=== PATIENT | male | born 1935 | race Caucasian/White ===

== ENCOUNTER 2022-03-08 09:59 | Inpatient (IN) | payer MEDICARE ==
[2022-03-08] MEDS ORDERED: Ondansetron ODT 4 MG TAB SL PRN (15:38)
[2022-03-08] MEDS ORDERED: Cepastat Lozenges 1 LOZ PO PRN (15:38)
[2022-03-08] MEDS ORDERED: Dextrose 50% Abboject 50 ML SYRINGE SLOW IVP PRN (15:38)
[2022-03-08] MEDS ORDERED: Bisacodyl 10 MG SUPP PR PRN (15:38)
[2022-03-08] MEDS ORDERED: Artificial Tear Sol 15 ML BOT EA EYE PRN (15:38)
[2022-03-08] MEDS ORDERED: Sodium Chloride 0.65% Nasal 44 ML BOT EA NARE PRN (15:38)
[2022-03-08] MEDS ORDERED: Acetaminophen 650 MG Suppository PR PRN (15:38)
[2022-03-08] MEDS ORDERED: Acetaminophen 325 MG TAB PO PRN (15:38)
[2022-03-08] MEDS ORDERED: Calcium Carbonate 500 MG ChewTAB PO PRN (15:38)
[2022-03-08] MEDS ORDERED: Guaifenesin DM 100-10/5 ML UDCUP PO PRN (15:38)
[2022-03-08] MEDS ORDERED: Benzonatate 100 MG CAP PO PRN (15:38)
[2022-03-08] MEDS: HumaLOG 300 UNITS/3 ML VIAL SC PRN ×2 (16:42→22:20)
[2022-03-08] MEDS: Phenazopyridine HCl 95 MG TAB PO SCH (20:55)
[2022-03-08] MEDS: Tamsulosin HCl 0.4 MG CAP PO SCH (20:55)
[2022-03-08] MEDS: Metoprolol Tartrate 25 MG TAB PO SCH (20:55)
[2022-03-08] MEDS: Famotidine 20 MG TAB PO SCH (20:55)
[2022-03-08] MEDS: Trospium 20 MG TAB PO SCH (20:55)
[2022-03-08] MEDS: Simvastatin 40 MG TAB PO SCH (20:55)
[2022-03-09 05:47] LABS: #Basophils 0.1 thou/uL (0.0-0.2); #Eosinphils 0.3 thou/uL (0.0-0.7); #Lymphocytes 2.1 thou/uL (1.20-3.40); #Monocytes 0.9 thou/uL (0.11-0.59); #Neutrophils 5.7 thou/uL (1.40-6.50); %Basophils 1.3 % (0.0-1.0); %Eosinophils 3.5 % (0.0-10.0); %Monocytes 9.8 % (0.0-10.0); %Neutrophils 62.4 % (42.0-75.0); Hemoglobin 15.4 g/dL (14.0-18.0); Mean Corpuscular HGB CONC 33.3 g/dL (32.0-36.0); Mean Corpuscular Hemoglobin 32.5 pg (27.0-31.0); Mean Corpuscular Volume 97.7 fl (78.0-98.0); Mean Platelet Volume 7.9 fL (7.4-10.4); Platelet Count 252 10x3/uL (130-400); RBC Distribution Width 11.8 % (11.5-14.5); Red Blood Cell (RBC) Count 4.72 mill/uL (4.70-6.10); White Blood Cell (WBC) Count 9.2 10x3/uL (4.8-10.8)
[2022-03-09 05:58] LABS: ALT (SGPT) 20 U/L (8-55); AST (SGOT) 18 U/L (5-34); Albumin 3.5 g/dL (3.4-4.8); Alkaline Phosphatase 72 U/L (40-110); Anion Gap 12 mmol/L (10-20); BUN (Urea Nitrogen) 15 mg/dL (8.4-25.7); Bilirubin, Total 0.6 mg/dL (0.2-1.2); Calc. Creatinine Clearance 53 mL/min (70-130); Calcium 9.7 mg/dL (7.8-10.44); Carbon Dioxide 27 mmol/L (23-31); Chloride 100 mmol/L (98-107); Estimated GFR 85; Globulin 3.3 g/dL (2.4-3.5); Glucose 100 mg/dL (83-110); Potassium 5.2 mmol/L (3.5-5.1); Protein, Total 6.8 g/dL (5.8-8.1); Sodium 134 mmol/L (136-145)
[2022-03-09] MEDS ORDERED: Metoprolol Tartrate 25 MG TAB PO SCH (06:30)
[2022-03-09] MEDS ORDERED: Dutasteride 0.5 MG CAP PO SCH (06:30)
[2022-03-09] MEDS ORDERED: Tamsulosin HCl 0.4 MG CAP PO SCH (06:30)
[2022-03-09] MEDS ORDERED: Lisinopril 5 MG TAB PO SCH (06:30)
[2022-03-09] MEDS ORDERED: FLUoxetine HCl 10 MG CAP PO SCH (06:30)
[2022-03-09] MEDS ORDERED: Famotidine 20 MG TAB PO SCH (06:30)
[2022-03-09] MEDS ORDERED: Phenazopyridine HCl 95 MG TAB PO SCH (06:30)
[2022-03-09] MEDS ORDERED: Trospium 20 MG TAB PO SCH (06:30)
[2022-03-09] MEDS ORDERED: Aspirin Chewable 81 MG TAB PO SCH (06:30)
[2022-03-09] MEDS: Dutasteride 0.5 MG CAP PO SCH (09:32)
[2022-03-09] MEDS: Aspirin Chewable 81 MG TAB PO SCH (09:32)
[2022-03-09] MEDS: Famotidine 20 MG TAB PO SCH ×2 (09:32→20:44)
[2022-03-09] MEDS: FLUoxetine HCl 10 MG CAP PO SCH (09:32)
[2022-03-09] MEDS: Lantus 1000 UNITS/10 ML VIAL SC SCH ×2 (09:32→15:58)
[2022-03-09] MEDS: Phenazopyridine HCl 95 MG TAB PO SCH ×2 (09:33→20:44)
[2022-03-09] MEDS: Metoprolol Tartrate 25 MG TAB PO SCH ×2 (09:33→20:44)
[2022-03-09] MEDS: Lisinopril 5 MG TAB PO SCH (09:33)
[2022-03-09] MEDS: Tamsulosin HCl 0.4 MG CAP PO SCH ×2 (09:33→20:43)
[2022-03-09] MEDS: Trospium 20 MG TAB PO SCH ×2 (09:33→20:43)
[2022-03-09] MEDS: HumaLOG 300 UNITS/3 ML VIAL SC PRN ×2 (15:58→20:44)
[2022-03-09 16:55] LABS: #Basophils 0.1 thou/uL (0.0-0.2); #Eosinphils 0.1 thou/uL (0.0-0.7); #Lymphocytes 0.9 thou/uL (1.20-3.40); #Monocytes 0.7 thou/uL (0.11-0.59); %Basophils 1.2 % (0.0-1.0); %Eosinophils 0.7 % (0.0-10.0); %Monocytes 8.6 % (0.0-10.0); %Neutrophils 77.5 % (42.0-75.0); Hemoglobin 13.6 g/dL (14.0-18.0); Mean Corpuscular HGB CONC 31.3 g/dL (32.0-36.0); Mean Corpuscular Hemoglobin 32.1 pg (27.0-31.0); Mean Platelet Volume 7.5 fL (7.4-10.4); Platelet Count 261 10x3/uL (130-400); RBC Distribution Width 12.2 % (11.5-14.5); Red Blood Cell (RBC) Count 4.23 mill/uL (4.70-6.10); White Blood Cell (WBC) Count 7.8 10x3/uL (4.8-10.8)
[2022-03-09 17:00] LABS: Lactic Acid 2.3 mmol/L (0.5-2.2)
[2022-03-09 17:04] LABS: Anion Gap 14 mmol/L (10-20); Globulin 2.7 g/dL (2.4-3.5)
[2022-03-09 17:13] LABS: ALT (SGPT) 16 U/L (8-55); AST (SGOT) 10 U/L (5-34); Albumin 3.4 g/dL (3.4-4.8); Alkaline Phosphatase 69 U/L (40-110); BUN (Urea Nitrogen) 33 mg/dL (8.4-25.7); Bilirubin, Total 0.4 mg/dL (0.2-1.2); Calc. Creatinine Clearance 21 mL/min (70-130); Calcium 9.2 mg/dL (7.8-10.44); Carbon Dioxide 24 mmol/L (23-31); Chloride 94 mmol/L (98-107); Estimated GFR 30; Glucose 672 mg/dL (83-110); Potassium 5.3 mmol/L (3.5-5.1); Protein, Total 6.1 g/dL (5.8-8.1); Sodium 127 mmol/L (136-145)
[2022-03-09 18:16] LABS: Glucose 390 mg/dL (83-110)
[2022-03-09 20:30] LABS: Lactic Acid 1.6 mmol/L (0.5-2.2)
[2022-03-09] MEDS: Senokot S 8.6-50 MG TAB PO PRN (20:43)
[2022-03-09] MEDS: Simvastatin 40 MG TAB PO SCH (20:44)
[2022-03-10 05:59] LABS: #Basophils 0.1 thou/uL (0.0-0.2); #Eosinphils 0.4 thou/uL (0.0-0.7); #Lymphocytes 1.9 thou/uL (1.20-3.40); #Monocytes 0.9 thou/uL (0.11-0.59); #Neutrophils 5.2 thou/uL (1.40-6.50); %Basophils 1.5 % (0.0-1.0); %Eosinophils 5.1 % (0.0-10.0); %Lymphocytes 21.8 % (21.0-51.0); %Monocytes 10.2 % (0.0-10.0); %Neutrophils 61.4 % (42.0-75.0); Hemoglobin 13.4 g/dL (14.0-18.0); Mean Corpuscular Hemoglobin 32.8 pg (27.0-31.0); Mean Corpuscular Volume 96.5 fl (78.0-98.0); Mean Platelet Volume 7.9 fL (7.4-10.4); Platelet Count 242 10x3/uL (130-400); RBC Distribution Width 11.4 % (11.5-14.5); Red Blood Cell (RBC) Count 4.09 mill/uL (4.70-6.10); White Blood Cell (WBC) Count 8.5 10x3/uL (4.8-10.8)
[2022-03-10] MEDS: Lantus 1000 UNITS/10 ML VIAL SC SCH (08:17)
[2022-03-10] MEDS: Dutasteride 0.5 MG CAP PO SCH (08:24)
[2022-03-10] MEDS: FLUoxetine HCl 10 MG CAP PO SCH (08:25)
[2022-03-10] MEDS: Famotidine 20 MG TAB PO SCH ×2 (08:25→20:34)
[2022-03-10] MEDS: Tamsulosin HCl 0.4 MG CAP PO SCH ×2 (08:25→20:34)
[2022-03-10] MEDS: Aspirin Chewable 81 MG TAB PO SCH (08:25)
[2022-03-10] MEDS: Phenazopyridine HCl 95 MG TAB PO SCH ×2 (08:25→20:34)
[2022-03-10] MEDS: Trospium 20 MG TAB PO SCH ×2 (08:26→20:34)
[2022-03-10] MEDS: Metoprolol Tartrate 25 MG TAB PO SCH ×2 (08:28→20:35)
[2022-03-10] MEDS: Lisinopril 5 MG TAB PO SCH (08:29)
[2022-03-10] MEDS ORDERED: Nitrofurantoin Monohyd/M-Cryst 100 MG CAP PO SCH (09:00)
[2022-03-10] MEDS ORDERED: Sodium Chloride 0.9% 1,000 ML IV SCH (09:45)
[2022-03-10] MEDS: HumaLOG 300 UNITS/3 ML VIAL SC PRN ×2 (11:51→17:02)
[2022-03-10] MEDS: Bisacodyl 5 MG TAB PO PRN (20:34)
[2022-03-10] MEDS: Simvastatin 40 MG TAB PO SCH (20:34)
[2022-03-11 06:21] LABS: #Basophils 0.1 thou/uL (0.0-0.2); #Eosinphils 0.3 thou/uL (0.0-0.7); #Lymphocytes 1.7 thou/uL (1.20-3.40); #Monocytes 0.7 thou/uL (0.11-0.59); %Basophils 1.4 % (0.0-1.0); %Lymphocytes 19.7 % (21.0-51.0); %Monocytes 7.8 % (0.0-10.0); Hemoglobin 13.4 g/dL (14.0-18.0); Mean Corpuscular HGB CONC 32.3 g/dL (32.0-36.0); Mean Corpuscular Hemoglobin 31.8 pg (27.0-31.0); Mean Corpuscular Volume 98.5 fl (78.0-98.0); Mean Platelet Volume 7.6 fL (7.4-10.4); Platelet Count 246 10x3/uL (130-400); RBC Distribution Width 11.7 % (11.5-14.5); Red Blood Cell (RBC) Count 4.22 mill/uL (4.70-6.10); White Blood Cell (WBC) Count 8.8 10x3/uL (4.8-10.8)
[2022-03-11 06:35] LABS: Anion Gap 11 mmol/L (10-20)
[2022-03-11 06:50] LABS: BUN (Urea Nitrogen) 15 mg/dL (8.4-25.7); Calc. Creatinine Clearance 61 mL/min (70-130); Calcium 9.1 mg/dL (7.8-10.44); Carbon Dioxide 24 mmol/L (23-31); Chloride 105 mmol/L (98-107); Estimated GFR 88; Glucose 100 mg/dL (83-110); Potassium 4.6 mmol/L (3.5-5.1); Sodium 135 mmol/L (136-145)
[2022-03-11] MEDS: Trospium 20 MG TAB PO SCH ×2 (09:06→20:41)
[2022-03-11] MEDS: Famotidine 20 MG TAB PO SCH ×2 (09:06→20:42)
[2022-03-11] MEDS: Aspirin Chewable 81 MG TAB PO SCH (09:06)
[2022-03-11] MEDS: Lisinopril 5 MG TAB PO SCH (09:08)
[2022-03-11] MEDS: Metoprolol Tartrate 25 MG TAB PO SCH ×2 (09:09→20:42)
[2022-03-11] MEDS: Phenazopyridine HCl 95 MG TAB PO SCH ×2 (09:10→20:42)
[2022-03-11] MEDS: Tamsulosin HCl 0.4 MG CAP PO SCH ×2 (09:10→20:42)
[2022-03-11] MEDS: FLUoxetine HCl 10 MG CAP PO SCH (09:22)
[2022-03-11] MEDS: Dutasteride 0.5 MG CAP PO SCH (09:26)
[2022-03-11] MEDS: Lantus 1000 UNITS/10 ML VIAL SC SCH (10:11)
[2022-03-11] MEDS: HumaLOG 300 UNITS/3 ML VIAL SC PRN ×2 (11:27→17:10)
[2022-03-11] MEDS: Simvastatin 40 MG TAB PO SCH (20:41)
[2022-03-12] MEDS: FLUoxetine HCl 10 MG CAP PO SCH (08:24)
[2022-03-12] MEDS: Tamsulosin HCl 0.4 MG CAP PO SCH ×2 (08:24→21:09)
[2022-03-12] MEDS: Famotidine 20 MG TAB PO SCH ×2 (08:24→21:09)
[2022-03-12] MEDS: Dutasteride 0.5 MG CAP PO SCH (08:24)
[2022-03-12] MEDS: Aspirin Chewable 81 MG TAB PO SCH (08:24)
[2022-03-12] MEDS: Phenazopyridine HCl 95 MG TAB PO SCH ×2 (08:24→21:09)
[2022-03-12] MEDS: Trospium 20 MG TAB PO SCH ×2 (08:25→21:09)
[2022-03-12] MEDS: Lisinopril 5 MG TAB PO SCH (08:25)
[2022-03-12] MEDS: Metoprolol Tartrate 25 MG TAB PO SCH ×2 (08:26→21:10)
[2022-03-12] MEDS: Lantus 1000 UNITS/10 ML VIAL SC SCH (08:29)
[2022-03-12] MEDS: HumaLOG 300 UNITS/3 ML VIAL SC PRN ×2 (11:27→17:16)
[2022-03-12] MEDS ORDERED: Sodium Chloride 0.9% 500 ML IVPB SCH (20:30)
[2022-03-12] MEDS: Simvastatin 40 MG TAB PO SCH (21:09)
[2022-03-13 06:12] LABS: #Basophils 0.1 thou/uL (0.0-0.2); #Eosinphils 0.3 thou/uL (0.0-0.7); #Lymphocytes 2.5 thou/uL (1.20-3.40); #Monocytes 0.6 thou/uL (0.11-0.59); #Neutrophils 5.1 thou/uL (1.40-6.50); %Basophils 0.8 % (0.0-1.0); %Eosinophils 3.2 % (0.0-10.0); %Lymphocytes 29.4 % (21.0-51.0); %Monocytes 7.2 % (0.0-10.0); %Neutrophils 59.4 % (42.0-75.0); Mean Corpuscular HGB CONC 33.1 g/dL (32.0-36.0); Mean Corpuscular Hemoglobin 32.6 pg (27.0-31.0); Mean Corpuscular Volume 98.6 fl (78.0-98.0); Mean Platelet Volume 7.4 fL (7.4-10.4); Platelet Count 243 10x3/uL (130-400); RBC Distribution Width 11.5 % (11.5-14.5); Red Blood Cell (RBC) Count 3.98 mill/uL (4.70-6.10); White Blood Cell (WBC) Count 8.6 10x3/uL (4.8-10.8)
[2022-03-13 06:22] LABS: Anion Gap 11 mmol/L (10-20); BUN (Urea Nitrogen) 26 mg/dL (8.4-25.7); Calc. Creatinine Clearance 54 mL/min (70-130); Calcium 9.2 mg/dL (7.8-10.44); Carbon Dioxide 25 mmol/L (23-31); Chloride 104 mmol/L (98-107); Estimated GFR 85; Glucose 69 mg/dL (83-110); Potassium 4.2 mmol/L (3.5-5.1); Sodium 136 mmol/L (136-145)
[2022-03-13] MEDS: Aspirin Chewable 81 MG TAB PO SCH (08:30)
[2022-03-13] MEDS: Trospium 20 MG TAB PO SCH ×2 (08:31→20:22)
[2022-03-13] MEDS: Metoprolol Tartrate 25 MG TAB PO SCH ×2 (08:31→20:21)
[2022-03-13] MEDS: FLUoxetine HCl 10 MG CAP PO SCH (08:31)
[2022-03-13] MEDS: Famotidine 20 MG TAB PO SCH ×2 (08:31→20:22)
[2022-03-13] MEDS: Tamsulosin HCl 0.4 MG CAP PO SCH ×2 (08:31→20:22)
[2022-03-13] MEDS: Dutasteride 0.5 MG CAP PO SCH (08:31)
[2022-03-13] MEDS: Lantus 1000 UNITS/10 ML VIAL SC SCH (08:31)
[2022-03-13] MEDS: Phenazopyridine HCl 95 MG TAB PO SCH ×2 (08:31→20:22)
[2022-03-13] MEDS: Lisinopril 5 MG TAB PO SCH (09:00)
[2022-03-13] MEDS: HumaLOG 300 UNITS/3 ML VIAL SC PRN ×3 (11:41→20:23)
[2022-03-13] MEDS: Simvastatin 40 MG TAB PO SCH (20:22)
[2022-03-14] MEDS: HumaLOG 300 UNITS/3 ML VIAL SC PRN ×2 (06:28→11:24)
[2022-03-14] MEDS: Metoprolol Tartrate 25 MG TAB PO SCH ×2 (08:19→21:23)
[2022-03-14] MEDS: Dutasteride 0.5 MG CAP PO SCH (08:19)
[2022-03-14] MEDS: Phenazopyridine HCl 95 MG TAB PO SCH ×2 (08:19→21:22)
[2022-03-14] MEDS: Tamsulosin HCl 0.4 MG CAP PO SCH ×2 (08:19→21:22)
[2022-03-14] MEDS: Trospium 20 MG TAB PO SCH ×2 (08:19→21:22)
[2022-03-14] MEDS: Lantus 1000 UNITS/10 ML VIAL SC SCH (08:19)
[2022-03-14] MEDS: Aspirin Chewable 81 MG TAB PO SCH (08:19)
[2022-03-14] MEDS: FLUoxetine HCl 10 MG CAP PO SCH (08:19)
[2022-03-14] MEDS: Famotidine 20 MG TAB PO SCH ×2 (08:19→21:22)
[2022-03-14] MEDS: Lisinopril 5 MG TAB PO SCH (08:50)
[2022-03-14] MEDS: Simvastatin 40 MG TAB PO SCH (21:22)
[2022-03-15 05:38] LABS: #Basophils 0.1 thou/uL (0.0-0.2); #Eosinphils 0.4 thou/uL (0.0-0.7); #Lymphocytes 2.1 thou/uL (1.20-3.40); #Monocytes 0.7 thou/uL (0.11-0.59); #Neutrophils 5.7 thou/uL (1.40-6.50); %Basophils 1.1 % (0.0-1.0); %Eosinophils 4.6 % (0.0-10.0); %Lymphocytes 23.1 % (21.0-51.0); %Monocytes 7.8 % (0.0-10.0); %Neutrophils 63.4 % (42.0-75.0); Hemoglobin 12.9 g/dL (14.0-18.0); Mean Corpuscular HGB CONC 32.5 g/dL (32.0-36.0); Mean Corpuscular Hemoglobin 31.9 pg (27.0-31.0); Mean Corpuscular Volume 98.2 fl (78.0-98.0); Mean Platelet Volume 7.4 fL (7.4-10.4); Platelet Count 238 10x3/uL (130-400); RBC Distribution Width 11.6 % (11.5-14.5); Red Blood Cell (RBC) Count 4.04 mill/uL (4.70-6.10); White Blood Cell (WBC) Count 8.9 10x3/uL (4.8-10.8)
[2022-03-15 06:43] LABS: Anion Gap 11 mmol/L (10-20); BUN (Urea Nitrogen) 24 mg/dL (8.4-25.7); Calc. Creatinine Clearance 59 mL/min (70-130); Carbon Dioxide 26 mmol/L (23-31); Chloride 101 mmol/L (98-107); Estimated GFR 87; Glucose 77 mg/dL (83-110); Sodium 134 mmol/L (136-145)
[2022-03-15] MEDS: Lantus 1000 UNITS/10 ML VIAL SC SCH (08:46)
[2022-03-15] MEDS: Aspirin Chewable 81 MG TAB PO SCH (08:47)
[2022-03-15] MEDS: Dutasteride 0.5 MG CAP PO SCH (08:47)
[2022-03-15] MEDS: Trospium 20 MG TAB PO SCH ×2 (08:47→20:38)
[2022-03-15] MEDS: Famotidine 20 MG TAB PO SCH ×2 (08:47→20:39)
[2022-03-15] MEDS: Phenazopyridine HCl 95 MG TAB PO SCH ×2 (08:47→20:41)
[2022-03-15] MEDS: FLUoxetine HCl 10 MG CAP PO SCH (08:47)
[2022-03-15] MEDS: Tamsulosin HCl 0.4 MG CAP PO SCH ×2 (08:47→20:38)
[2022-03-15] MEDS: Metoprolol Tartrate 25 MG TAB PO SCH ×2 (08:47→20:39)
[2022-03-15] MEDS: Lisinopril 5 MG TAB PO SCH (08:56)
[2022-03-15] MEDS: HumaLOG 300 UNITS/3 ML VIAL SC PRN ×2 (11:11→16:25)
[2022-03-15] MEDS: Simvastatin 40 MG TAB PO SCH (20:38)
[2022-03-16] MEDS: Aspirin Chewable 81 MG TAB PO SCH (08:02)
[2022-03-16] MEDS: Metoprolol Tartrate 25 MG TAB PO SCH ×2 (08:03→20:58)
[2022-03-16] MEDS: Lantus 1000 UNITS/10 ML VIAL SC SCH (08:03)
[2022-03-16] MEDS: Phenazopyridine HCl 95 MG TAB PO SCH ×2 (08:03→21:01)
[2022-03-16] MEDS: Trospium 20 MG TAB PO SCH ×2 (08:03→20:58)
[2022-03-16] MEDS: Tamsulosin HCl 0.4 MG CAP PO SCH ×2 (08:04→20:58)
[2022-03-16] MEDS: Dutasteride 0.5 MG CAP PO SCH (08:04)
[2022-03-16] MEDS: Lisinopril 5 MG TAB PO SCH (08:05)
[2022-03-16] MEDS: Famotidine 20 MG TAB PO SCH ×2 (08:05→20:58)
[2022-03-16] MEDS: FLUoxetine HCl 10 MG CAP PO SCH (08:06)
[2022-03-16] MEDS: HumaLOG 300 UNITS/3 ML VIAL SC PRN ×2 (11:36→16:44)
[2022-03-16] MEDS: Senokot S 8.6-50 MG TAB PO PRN (15:50)
[2022-03-16] MEDS: Simvastatin 40 MG TAB PO SCH (20:59)
[2022-03-17 05:14] VITALS: BMI 19.3
[2022-03-17] MEDS: FLUoxetine HCl 10 MG CAP PO SCH (07:51)
[2022-03-17] MEDS: Trospium 20 MG TAB PO SCH ×2 (07:52→20:37)
[2022-03-17] MEDS: Tamsulosin HCl 0.4 MG CAP PO SCH ×2 (07:52→20:37)
[2022-03-17] MEDS: Aspirin Chewable 81 MG TAB PO SCH (07:52)
[2022-03-17] MEDS: Famotidine 20 MG TAB PO SCH ×2 (07:52→20:37)
[2022-03-17] MEDS: Phenazopyridine HCl 95 MG TAB PO SCH ×2 (07:52→20:37)
[2022-03-17] MEDS: Dutasteride 0.5 MG CAP PO SCH (07:52)
[2022-03-17] MEDS: Lantus 1000 UNITS/10 ML VIAL SC SCH (07:54)
[2022-03-17] MEDS: Lisinopril 5 MG TAB PO SCH (07:54)
[2022-03-17] MEDS: Metoprolol Tartrate 25 MG TAB PO SCH ×2 (07:55→20:38)
[2022-03-17] MEDS: HumaLOG 300 UNITS/3 ML VIAL SC PRN (11:32)
[2022-03-17] MEDS: HumaLOG 300 UNITS/3 ML VIAL SC SCH (17:12)
[2022-03-17] MEDS: Bisacodyl 5 MG TAB PO PRN (20:37)
[2022-03-17] MEDS: Simvastatin 40 MG TAB PO SCH (20:37)
[2022-03-18] MEDS: HumaLOG 300 UNITS/3 ML VIAL SC PRN ×2 (05:59→16:35)
[2022-03-18 06:21] LABS: #Basophils 0.2 thou/uL (0.0-0.2); #Eosinphils 0.4 thou/uL (0.0-0.7); #Lymphocytes 2.6 thou/uL (1.20-3.40); #Monocytes 0.7 thou/uL (0.11-0.59); #Neutrophils 4.2 thou/uL (1.40-6.50); %Basophils 1.9 % (0.0-1.0); %Eosinophils 4.9 % (0.0-10.0); %Monocytes 9.1 % (0.0-10.0); %Neutrophils 52.1 % (42.0-75.0); Hemoglobin 13.8 g/dL (14.0-18.0); Mean Corpuscular HGB CONC 32.1 g/dL (32.0-36.0); Mean Corpuscular Hemoglobin 32.3 pg (27.0-31.0); Mean Platelet Volume 6.9 fL (7.4-10.4); Platelet Count 262 10x3/uL (130-400); RBC Distribution Width 11.4 % (11.5-14.5); Red Blood Cell (RBC) Count 4.26 mill/uL (4.70-6.10)
[2022-03-18 06:53] LABS: Anion Gap 11 mmol/L (10-20); BUN (Urea Nitrogen) 27 mg/dL (8.4-25.7); Calc. Creatinine Clearance 52 mL/min (70-130); Calcium 9.5 mg/dL (7.8-10.44); Carbon Dioxide 25 mmol/L (23-31); Chloride 101 mmol/L (98-107); Estimated GFR 86; Glucose 159 mg/dL (83-110); Potassium 4.2 mmol/L (3.5-5.1); Sodium 133 mmol/L (136-145)
[2022-03-18] MEDS: Trospium 20 MG TAB PO SCH ×2 (08:12→20:26)
[2022-03-18] MEDS: Tamsulosin HCl 0.4 MG CAP PO SCH ×2 (08:12→20:26)
[2022-03-18] MEDS: FLUoxetine HCl 10 MG CAP PO SCH (08:12)
[2022-03-18] MEDS: Aspirin Chewable 81 MG TAB PO SCH (08:12)
[2022-03-18] MEDS: Phenazopyridine HCl 95 MG TAB PO SCH ×2 (08:12→20:26)
[2022-03-18] MEDS: Famotidine 20 MG TAB PO SCH ×2 (08:12→20:26)
[2022-03-18] MEDS: Lisinopril 5 MG TAB PO SCH (08:13)
[2022-03-18] MEDS: Metoprolol Tartrate 25 MG TAB PO SCH ×2 (08:14→20:46)
[2022-03-18] MEDS: Dutasteride 0.5 MG CAP PO SCH (08:17)
[2022-03-18] MEDS: Lantus 1000 UNITS/10 ML VIAL SC SCH (08:20)
[2022-03-18] MEDS: HumaLOG 300 UNITS/3 ML VIAL SC SCH ×3 (08:21→16:52)
[2022-03-18] MEDS: Simvastatin 40 MG TAB PO SCH (20:26)
[2022-03-19] MEDS: FLUoxetine HCl 10 MG CAP PO SCH (08:09)
[2022-03-19] MEDS: Famotidine 20 MG TAB PO SCH ×2 (08:09→21:04)
[2022-03-19] MEDS: Trospium 20 MG TAB PO SCH ×2 (08:09→21:04)
[2022-03-19] MEDS: Phenazopyridine HCl 95 MG TAB PO SCH ×2 (08:09→21:04)
[2022-03-19] MEDS: Aspirin Chewable 81 MG TAB PO SCH (08:09)
[2022-03-19] MEDS: Metoprolol Tartrate 25 MG TAB PO SCH ×2 (08:09→21:03)
[2022-03-19] MEDS: Dutasteride 0.5 MG CAP PO SCH (08:09)
[2022-03-19] MEDS: Tamsulosin HCl 0.4 MG CAP PO SCH ×2 (08:09→21:04)
[2022-03-19] MEDS: Lantus 1000 UNITS/10 ML VIAL SC SCH (08:10)
[2022-03-19] MEDS: Lisinopril 5 MG TAB PO SCH (08:10)
[2022-03-19] MEDS: HumaLOG 300 UNITS/3 ML VIAL SC SCH ×3 (08:10→17:18)
[2022-03-19] MEDS: HumaLOG 300 UNITS/3 ML VIAL SC PRN (12:05)
[2022-03-19] MEDS: Simvastatin 40 MG TAB PO SCH (21:04)
[2022-03-20 06:09] LABS: #Basophils 0.1 thou/uL (0.0-0.2); #Eosinphils 0.6 thou/uL (0.0-0.7); #Lymphocytes 2.7 thou/uL (1.20-3.40); #Monocytes 0.9 thou/uL (0.11-0.59); #Neutrophils 6.5 thou/uL (1.40-6.50); %Basophils 1.3 % (0.0-1.0); %Eosinophils 5.2 % (0.0-10.0); %Monocytes 8.1 % (0.0-10.0); %Neutrophils 60.4 % (42.0-75.0); Hemoglobin 14.3 g/dL (14.0-18.0); Mean Corpuscular HGB CONC 34.2 g/dL (32.0-36.0); Mean Corpuscular Hemoglobin 32.7 pg (27.0-31.0); Mean Corpuscular Volume 95.7 fl (78.0-98.0); Mean Platelet Volume 7.2 fL (7.4-10.4); Platelet Count 241 10x3/uL (130-400); RBC Distribution Width 11.1 % (11.5-14.5); Red Blood Cell (RBC) Count 4.37 mill/uL (4.70-6.10); White Blood Cell (WBC) Count 10.7 10x3/uL (4.8-10.8)
[2022-03-20 06:15] LABS: Anion Gap 13 mmol/L (10-20); BUN (Urea Nitrogen) 18 mg/dL (8.4-25.7); Calc. Creatinine Clearance 52 mL/min (70-130); Calcium 9.5 mg/dL (7.8-10.44); Chloride 102 mmol/L (98-107); Estimated GFR 86; Glucose 120 mg/dL (83-110); Potassium 3.8 mmol/L (3.5-5.1); Sodium 138 mmol/L (136-145)
[2022-03-20] MEDS: Lantus 1000 UNITS/10 ML VIAL SC SCH (08:36)
[2022-03-20] MEDS: HumaLOG 300 UNITS/3 ML VIAL SC SCH ×3 (08:36→18:18)
[2022-03-20] MEDS: Phenazopyridine HCl 95 MG TAB PO SCH ×2 (08:42→20:36)
[2022-03-20] MEDS: Aspirin Chewable 81 MG TAB PO SCH (08:42)
[2022-03-20] MEDS: FLUoxetine HCl 10 MG CAP PO SCH (08:42)
[2022-03-20] MEDS: Dutasteride 0.5 MG CAP PO SCH (08:42)
[2022-03-20] MEDS: Famotidine 20 MG TAB PO SCH ×2 (08:42→20:34)
[2022-03-20] MEDS: Trospium 20 MG TAB PO SCH ×2 (08:42→20:37)
[2022-03-20] MEDS: Tamsulosin HCl 0.4 MG CAP PO SCH ×2 (08:42→20:33)
[2022-03-20] MEDS: Lisinopril 5 MG TAB PO SCH (08:43)
[2022-03-20] MEDS: Metoprolol Tartrate 25 MG TAB PO SCH ×2 (08:43→20:34)
[2022-03-20 10:52] LABS: Carbon Dioxide 27 mmol/L (23-31)
[2022-03-20] MEDS: HumaLOG 300 UNITS/3 ML VIAL SC PRN ×2 (11:48→17:31)
[2022-03-20] MEDS: Simvastatin 40 MG TAB PO SCH (20:36)
[2022-03-21] MEDS: Lantus 1000 UNITS/10 ML VIAL SC SCH (08:31)
[2022-03-21] MEDS: HumaLOG 300 UNITS/3 ML VIAL SC SCH ×3 (08:31→17:35)
[2022-03-21] MEDS: FLUoxetine HCl 10 MG CAP PO SCH (08:32)
[2022-03-21] MEDS: Lisinopril 5 MG TAB PO SCH (08:32)
[2022-03-21] MEDS: Aspirin Chewable 81 MG TAB PO SCH (08:32)
[2022-03-21] MEDS: Tamsulosin HCl 0.4 MG CAP PO SCH ×2 (08:32→20:39)
[2022-03-21] MEDS: Metoprolol Tartrate 25 MG TAB PO SCH ×2 (08:33→20:29)
[2022-03-21] MEDS: Trospium 20 MG TAB PO SCH ×2 (08:33→20:39)
[2022-03-21] MEDS: Dutasteride 0.5 MG CAP PO SCH (08:33)
[2022-03-21] MEDS: Phenazopyridine HCl 95 MG TAB PO SCH ×2 (08:33→20:39)
[2022-03-21] MEDS: Famotidine 20 MG TAB PO SCH ×2 (08:33→20:39)
[2022-03-21] MEDS: HumaLOG 300 UNITS/3 ML VIAL SC PRN (11:45)
[2022-03-21] MEDS: Simvastatin 40 MG TAB PO SCH (20:39)
[2022-03-22 06:01] LABS: #Basophils 0.1 thou/uL (0.0-0.2); #Eosinphils 0.4 thou/uL (0.0-0.7); #Lymphocytes 2.4 thou/uL (1.20-3.40); #Monocytes 0.8 thou/uL (0.11-0.59); #Neutrophils 7.6 thou/uL (1.40-6.50); %Basophils 1.3 % (0.0-1.0); %Eosinophils 3.2 % (0.0-10.0); %Lymphocytes 21.3 % (21.0-51.0); %Neutrophils 67.1 % (42.0-75.0); Hemoglobin 13.2 g/dL (14.0-18.0); Mean Corpuscular HGB CONC 34.1 g/dL (32.0-36.0); Mean Corpuscular Hemoglobin 32.8 pg (27.0-31.0); Mean Corpuscular Volume 96.1 fl (78.0-98.0); Mean Platelet Volume 6.9 fL (7.4-10.4); Platelet Count 205 10x3/uL (130-400); RBC Distribution Width 11.3 % (11.5-14.5); Red Blood Cell (RBC) Count 4.03 mill/uL (4.70-6.10); White Blood Cell (WBC) Count 11.3 10x3/uL (4.8-10.8)
[2022-03-22 06:10] LABS: Anion Gap 12 mmol/L (10-20); BUN (Urea Nitrogen) 24 mg/dL (8.4-25.7); Calc. Creatinine Clearance 53 mL/min (70-130); Calcium 9.1 mg/dL (7.8-10.44); Carbon Dioxide 25 mmol/L (23-31); Chloride 103 mmol/L (98-107); Estimated GFR 86; Potassium 3.6 mmol/L (3.5-5.1); Sodium 136 mmol/L (136-145)
[2022-03-22 06:24] LABS: Glucose 53 mg/dL (83-110)
[2022-03-22] MEDS: Famotidine 20 MG TAB PO SCH ×2 (08:18→20:27)
[2022-03-22] MEDS: Tamsulosin HCl 0.4 MG CAP PO SCH ×2 (08:18→20:27)
[2022-03-22] MEDS: Trospium 20 MG TAB PO SCH ×2 (08:18→20:27)
[2022-03-22] MEDS: Phenazopyridine HCl 95 MG TAB PO SCH ×2 (08:18→20:27)
[2022-03-22] MEDS: Lisinopril 5 MG TAB PO SCH (08:19)
[2022-03-22] MEDS: FLUoxetine HCl 10 MG CAP PO SCH (08:20)
[2022-03-22] MEDS: Aspirin Chewable 81 MG TAB PO SCH (08:21)
[2022-03-22] MEDS: Dutasteride 0.5 MG CAP PO SCH (08:21)
[2022-03-22] MEDS: Metoprolol Tartrate 25 MG TAB PO SCH ×2 (08:21→20:28)
[2022-03-22] MEDS ORDERED: Lantus 1000 UNITS/10 ML VIAL SC SCH (10:15)
[2022-03-22] MEDS: HumaLOG 300 UNITS/3 ML VIAL SC SCH ×3 (17:05→18:30)
[2022-03-22] MEDS: Lantus 1000 UNITS/10 ML VIAL SC SCH (18:30)
[2022-03-22] MEDS: Simvastatin 40 MG TAB PO SCH (20:27)
[2022-03-23] MEDS: HumaLOG 300 UNITS/3 ML VIAL SC SCH ×3 (07:45→19:59)
[2022-03-23] MEDS: Lantus 1000 UNITS/10 ML VIAL SC SCH (07:46)
[2022-03-23] MEDS: FLUoxetine HCl 10 MG CAP PO SCH (07:47)
[2022-03-23] MEDS: Tamsulosin HCl 0.4 MG CAP PO SCH ×2 (07:47→20:18)
[2022-03-23] MEDS: Dutasteride 0.5 MG CAP PO SCH (07:48)
[2022-03-23] MEDS: Phenazopyridine HCl 95 MG TAB PO SCH ×2 (07:48→20:18)
[2022-03-23] MEDS: Trospium 20 MG TAB PO SCH ×2 (07:48→20:18)
[2022-03-23] MEDS: Famotidine 20 MG TAB PO SCH ×2 (07:48→20:18)
[2022-03-23] MEDS: Aspirin Chewable 81 MG TAB PO SCH (07:48)
[2022-03-23] MEDS: Lisinopril 5 MG TAB PO SCH (07:51)
[2022-03-23] MEDS: Metoprolol Tartrate 25 MG TAB PO SCH ×2 (08:01→20:17)
[2022-03-23] MEDS: HumaLOG 300 UNITS/3 ML VIAL SC PRN (12:23)
[2022-03-23] MEDS: Senokot S 8.6-50 MG TAB PO PRN (20:17)
[2022-03-23] MEDS: Simvastatin 40 MG TAB PO SCH (20:18)
[2022-03-24] MEDS: Lisinopril 5 MG TAB PO SCH (08:36)
[2022-03-24] MEDS: Aspirin Chewable 81 MG TAB PO SCH (08:36)
[2022-03-24] MEDS: Dutasteride 0.5 MG CAP PO SCH (08:36)
[2022-03-24] MEDS: Metoprolol Tartrate 25 MG TAB PO SCH ×2 (08:37→21:16)
[2022-03-24] MEDS: FLUoxetine HCl 10 MG CAP PO SCH (08:37)
[2022-03-24] MEDS: Lantus 1000 UNITS/10 ML VIAL SC SCH (08:38)
[2022-03-24] MEDS: Famotidine 20 MG TAB PO SCH ×2 (08:38→21:16)
[2022-03-24] MEDS: Trospium 20 MG TAB PO SCH ×2 (08:38→21:16)
[2022-03-24] MEDS: Tamsulosin HCl 0.4 MG CAP PO SCH ×2 (08:38→21:16)
[2022-03-24] MEDS: Phenazopyridine HCl 95 MG TAB PO SCH ×2 (08:38→21:16)
[2022-03-24] MEDS: HumaLOG 300 UNITS/3 ML VIAL SC SCH ×3 (08:39→17:14)
[2022-03-24] MEDS: HumaLOG 300 UNITS/3 ML VIAL SC PRN (12:29)
[2022-03-24] MEDS: Bisacodyl 5 MG TAB PO PRN (12:29)
[2022-03-24] MEDS: Simvastatin 40 MG TAB PO SCH (21:16)
[2022-03-25 05:57] LABS: #Basophils 0.1 thou/uL (0.0-0.2); #Eosinphils 0.4 thou/uL (0.0-0.7); #Lymphocytes 2.4 thou/uL (1.20-3.40); #Monocytes 0.8 thou/uL (0.11-0.59); #Neutrophils 4.9 thou/uL (1.40-6.50); %Basophils 1.7 % (0.0-1.0); %Eosinophils 4.7 % (0.0-10.0); %Monocytes 8.8 % (0.0-10.0); %Neutrophils 56.7 % (42.0-75.0); Hemoglobin 13.5 g/dL (14.0-18.0); Mean Corpuscular HGB CONC 32.3 g/dL (32.0-36.0); Mean Corpuscular Hemoglobin 32.1 pg (27.0-31.0); Mean Corpuscular Volume 99.4 fl (78.0-98.0); Mean Platelet Volume 6.9 fL (7.4-10.4); Platelet Count 206 10x3/uL (130-400); RBC Distribution Width 11.5 % (11.5-14.5); White Blood Cell (WBC) Count 8.6 10x3/uL (4.8-10.8)
[2022-03-25 06:08] LABS: Anion Gap 11 mmol/L (10-20); BUN (Urea Nitrogen) 22 mg/dL (8.4-25.7); Calc. Creatinine Clearance 57 mL/min (70-130); Carbon Dioxide 24 mmol/L (23-31); Chloride 104 mmol/L (98-107); Estimated GFR 87; Glucose 114 mg/dL (83-110); Potassium 4.2 mmol/L (3.5-5.1); Sodium 135 mmol/L (136-145)
[2022-03-25] MEDS: HumaLOG 300 UNITS/3 ML VIAL SC SCH ×3 (08:44→17:25)
[2022-03-25] MEDS: Tamsulosin HCl 0.4 MG CAP PO SCH ×2 (08:46→21:32)
[2022-03-25] MEDS: Phenazopyridine HCl 95 MG TAB PO SCH ×2 (08:46→21:32)
[2022-03-25] MEDS: Aspirin Chewable 81 MG TAB PO SCH (08:46)
[2022-03-25] MEDS: FLUoxetine HCl 10 MG CAP PO SCH (08:46)
[2022-03-25] MEDS: Dutasteride 0.5 MG CAP PO SCH (08:46)
[2022-03-25] MEDS: Lisinopril 5 MG TAB PO SCH (08:46)
[2022-03-25] MEDS: Trospium 20 MG TAB PO SCH ×2 (08:46→21:32)
[2022-03-25] MEDS: Famotidine 20 MG TAB PO SCH ×2 (08:48→21:32)
[2022-03-25] MEDS: Lantus 1000 UNITS/10 ML VIAL SC SCH (08:50)
[2022-03-25] MEDS: Metoprolol Tartrate 25 MG TAB PO SCH ×2 (09:12→21:31)
[2022-03-25] MEDS: HumaLOG 300 UNITS/3 ML VIAL SC PRN ×2 (12:07→17:25)
[2022-03-25] MEDS: Simvastatin 40 MG TAB PO SCH (21:32)
[2022-03-26] MEDS: Metoprolol Tartrate 25 MG TAB PO SCH ×2 (09:13→20:16)
[2022-03-26] MEDS: HumaLOG 300 UNITS/3 ML VIAL SC SCH ×3 (09:13→18:17)
[2022-03-26] MEDS: Aspirin Chewable 81 MG TAB PO SCH (09:16)
[2022-03-26] MEDS: Tamsulosin HCl 0.4 MG CAP PO SCH ×2 (09:16→20:17)
[2022-03-26] MEDS: Dutasteride 0.5 MG CAP PO SCH (09:16)
[2022-03-26] MEDS: Trospium 20 MG TAB PO SCH ×2 (09:16→20:17)
[2022-03-26] MEDS: Famotidine 20 MG TAB PO SCH ×2 (09:16→20:17)
[2022-03-26] MEDS: Phenazopyridine HCl 95 MG TAB PO SCH ×2 (09:16→20:17)
[2022-03-26] MEDS: FLUoxetine HCl 10 MG CAP PO SCH (09:16)
[2022-03-26] MEDS: Lisinopril 5 MG TAB PO SCH (09:17)
[2022-03-26] MEDS: Lantus 1000 UNITS/10 ML VIAL SC SCH (09:19)
[2022-03-26] MEDS: HumaLOG 300 UNITS/3 ML VIAL SC PRN (11:48)
[2022-03-26 19:48] VITALS: BP 124/64; TEMP 97.7
[2022-03-26] MEDS: Simvastatin 40 MG TAB PO SCH (20:17)
== END 2022-03-26 21:27 | DRG 948 ==
LOC: NAV ACUTE 13:04
PROVIDERS: ADMIT Family Medicine; ATTEND Family Medicine
DX: R53.1 Weakness (principal); N17.9 Acute kidney failure, unspecified; Z20.822 Contact with and (suspected) exposure to COVID-19; Z66 Do not resuscitate; G30.9 Alzheimer's disease, unspecified; F02.80 Dementia in other diseases classified elsewhere, unspecified severity, without behavioral disturbance, psychotic disturbance, mood disturbance, and anxiety; R53.81 Other malaise; E11.65 Type 2 diabetes mellitus with hyperglycemia; K59.00 Constipation, unspecified; I10 Essential (primary) hypertension; Z87.440 Personal history of urinary (tract) infections; Z90.49 Acquired absence of other specified parts of digestive tract; Z79.82 Long term (current) use of aspirin; Z79.4 Long term (current) use of insulin; Z79.84 Long term (current) use of oral hypoglycemic drugs; Z79.899 Other long term (current) drug therapy; Z82.49 Family history of ischemic heart disease and other diseases of the circulatory system
CPT/HCPCS: 36415; 36416; 80048; 80053; 83605; 85025; 87040; 87086; 87811; J1650; J1815; J7030; J7050

== ENCOUNTER 2022-04-16 03:26 | Emergency (ER) | payer OTHER, MEDICARE | END 2022-04-16 04:45 | LOC: NAV ERS 03:26 | DX: S09.90XA Unspecified injury of head, initial encounter (principal); S00.93XA Contusion of unspecified part of head, initial encounter; E78.00 Pure hypercholesterolemia, unspecified; I10 Essential (primary) hypertension; E11.9 Type 2 diabetes mellitus without complications; W01.198A Fall on same level from slipping, tripping and stumbling with subsequent striking against other object, initial encounter; Y92.121 Bathroom in nursing home as the place of occurrence of the external cause; Z79.4 Long term (current) use of insulin; Z79.84 Long term (current) use of oral hypoglycemic drugs; Z79.899 Other long term (current) drug therapy | CPT/HCPCS: 70450 ==